=== PATIENT | male | born 1965 | race African-American/Black ===

== ENCOUNTER 2017-05-06 14:55 | Emergency (ER) | payer BC ==
[~2017-05-06] VITALS: Ht 182.9 cm; Wt 165.0 kg
[2017-05-06] MEDS ORDERED: LIDODERM 5% P1 PATCH TD (15:59)
[2017-05-06] MEDS ORDERED: PERCOCET 5/31 TABLET PO (15:59)
[2017-05-06 16:42] VITALS: BP 0/0
== END 2017-05-06 16:45 | disposition home or self-care (01) ==
LOC: EME 14:55
DX: M54.9 Dorsalgia, unspecified (principal); I10 Essential (primary) hypertension; M19.90 Unspecified osteoarthritis, unspecified site
CPT/HCPCS: 99281; 99283